=== PATIENT | male | born 1975 | race Caucasian/White ===

== ENCOUNTER → 2021-09-06 15:11 | Outpatient (CLI) | payer OTHER, SELFPAY ==
--- NOTE | 2021-09-06 15:14 | DI.RAD.S_ITS ---
PROCEDURE: XR CHEST 2V INDICATIONS: SOB, fatigue after exrecise; h/o remote PNA x 1 TECHNIQUE: 2 views of the chest were acquired. COMPARISON: None. FINDINGS: Surgical changes and devices: None. Lungs and pleura: Lungs are clear. No pleural effusions or pneumothorax. Mediastinum: Mediastinal contours are normal. Heart size is normal. Bones and chest wall: No suspicious bony abnormalities. Soft tissues appear unremarkable. IMPRESSION: No acute pulmonary process. Dictated by: Faith Colon M.D. on 09/06/2021 at 16:56 Approved by: Faith Colon M.D. on 09/06/2021 at 16:56
== END ==
PROVIDERS: PCP Pediatrics; Referring Provider Pediatrics; Visit Provider Pediatrics
DX: R06.02 Shortness of breath (principal); R09.89 Other specified symptoms and signs involving the circulatory and respiratory systems; R53.83 Other fatigue
CPT/HCPCS: 71046; 93005; 93010